=== PATIENT | male | born 1965 | race Caucasian/White ===

== ENCOUNTER 2017-05-24 19:34 | Inpatient (IN) | payer OTHER ==
[~2017-05-24] VITALS: Ht 170.2 cm; Wt 73.5 kg
[2017-05-24 22:07] LABS: BASOPHIL % 0.3 % (0-2); PLATELET COUNT 192 x10^3mcL (130-400); RED CELL DISTRIBUTION WIDTH 13.3 % (11.5-14.5)
[2017-05-24 22:10] LABS: CALCIUM 8.8 mg/dL (8.5-10.1); CARBON DIOXIDE 28.2 mmol/L (21-32); CHLORIDE SERUM 106 mmol/L (98-107); GFR1 > 60 mL/min; GLUCOSE SERUM 105 mg/dL (74-106); POTASSIUM SERUM 3.9 mmol/L (3.5-5.1); SODIUM SERUM 138 mmol/L (136-145)
[2017-05-24 22:14] LABS: ALKALINE PHOSPHATASE 65 U/L (46-116); ALT/SGPT 53 U/L (16-63); AST/SGOT 29 U/L (15-37); BILIRUBIN TOTAL 0.3 mg/dL (0.20-1.00); TOTAL PROTEIN, SERUM 7.5 g/dL (6.4-8.2)
[2017-05-25] MEDS ORDERED: MOT800 (02:39)
[2017-05-25 03:09] VITALS: BP 99/69
[2017-05-25 05:30] LABS: MAGNESIUM 2.4 mg/dL (1.8-2.4); T3 TOTAL 1.17 ng/mL
[2017-05-25 05:32] LABS: CHOLESTEROL/HDL RATIO 2.6
[2017-05-25 05:33] LABS: FREE T4 1.09 ng/dL (0.76-1.46); FREE THYROXINE INDEX 2.7 ug/dL (1.4-4.5); T4(THYROXINE) 8.1 ug/dL (4.7-13.3)
[2017-05-25 05:54] VITALS: BP 119/70
[2017-05-25 06:02] LABS: microscopic required? NO
[2017-05-25 06:20] LABS: urine erythrocyte NEGATIVE (NEGATIVE)
[2017-05-25 06:28] LABS: AMPHETAMINE QUAL UR NONE DETECTED (NEG <=1000)
[2017-05-25 06:29] LABS: BASOPHIL % 0.3 % (0-2); PLATELET COUNT 178 x10^3mcL (130-400); RED CELL DISTRIBUTION WIDTH 13.3 % (11.5-14.5)
[2017-05-25 06:38] LABS: CALCIUM 8.9 mg/dL (8.5-10.1); CARBON DIOXIDE 29.9 mmol/L (21-32); CHLORIDE SERUM 106 mmol/L (98-107); GFR1 > 60 mL/min; GLUCOSE SERUM 89 mg/dL (74-106); POTASSIUM SERUM 4.3 mmol/L (3.5-5.1); SODIUM SERUM 141 mmol/L (136-145)
[2017-05-25 06:44] VITALS: Ht 170.2 cm; Wt 73.5 kg
[2017-05-25 09:10] VITALS: BP 129/77
[2017-05-25 12:04] VITALS: BP 104/66
[2017-05-25 17:15] VITALS: BP 95/52
[2017-05-25 20:56] VITALS: BP 103/51
[2017-05-26 05:52] VITALS: BP 111/66
[2017-05-26 06:16] LABS: BASOPHIL % 0.3 % (0-2); PLATELET COUNT 174 x10^3mcL (130-400); RED CELL DISTRIBUTION WIDTH 13.5 % (11.5-14.5)
[2017-05-26 06:39] LABS: CALCIUM 8.6 mg/dL (8.5-10.1); CARBON DIOXIDE 25.3 mmol/L (21-32); CHLORIDE SERUM 107 mmol/L (98-107); CREATININE SERUM 0.8 mg/dL (0.7-1.3); GFR1 > 60 mL/min; GLUCOSE SERUM 100 mg/dL (74-106); PHOSPHOROUS 3.8 mg/dL (2.5-4.9); POTASSIUM SERUM 4.1 mmol/L (3.5-5.1); SODIUM SERUM 141 mmol/L (136-145)
[2017-05-26 08:59] VITALS: BP 104/72
[2017-05-26 12:37] VITALS: BP 119/51
[2017-05-26 15:38] VITALS: BP 119/51
== END 2017-05-26 16:37 | disposition home or self-care (01) | DRG 243 ==
LOC: ED 19:34 → DU 05-25 02:23
PROVIDERS: Emergency Medicine Emergency Medical Services; Family Medicine
DX: K21.9 Gastro-esophageal reflux disease without esophagitis (principal); E86.0 Dehydration; F45.8 Other somatoform disorders; K22.4 Dyskinesia of esophagus; R09.1 Pleurisy
CPT/HCPCS: 83880; 84439; J1885; J2270; J7030; J8597